=== PATIENT | female | born 1965 | race Caucasian/White ===

== ENCOUNTER 2018-12-12 10:36 | Emergency (ER) | payer BC ==
[2018-12-12] MEDS ORDERED: HYDROCODONE/APAP 5/325 MG TAB ONE ×2 (11:30→12:41)
[2018-12-12] MEDS ORDERED: IBUPROFEN 400 MG TAB ONE (11:30)
--- NOTE | 2018-12-12 12:03 | RAD REPORT ---
EXAM DESCRIPTION: RAD - Lumbar Spine 3 Views - 12/12/2018 11:48 am CLINICAL HISTORY: Fall, back pain, right lower extremity radiculopathy COMPARISON: None. FINDINGS: A three-view lumbar spine examination was performed. Lumbar bodies are normal in height an d alignment. No lumbar fracture or acute finding. No lytic or sclerotic changes. T11-12 disc space na rrowing present with endplate degenerative change. Degenerative endplate spurring is seen throughout the lumbar spine most prominent at the L2-3 disc level. Facet joint degenerative changes are present in the mid and lower lumbar spine. No significant SI joint finding. No pars defects identified. IMPRESSION: No compression fracture or acute lumbar spine finding. Patient has advanced for age degenerative change in the lower lumbar facet joints and in the lower th oracic and in the upper lumbar spine.
--- NOTE | 2018-12-12 12:03 | RAD REPORT ---
EXAM DESCRIPTION: RAD - Hip Right 2 View - 12/12/2018 11:48 am CLINICAL HISTORY: Fall, right hip pain COMPARISON: None. FINDINGS: AP and frog-leg views of the right hip were obtained. There is no fracture or dislocation . No AVN or focal femoral head abnormality. Patient has mild degenerative spurring along the superio r acetabular rim and along the articular margins of the femoral head. No periarticular mass or hemato ma. IMPRESSION: Right hip degenerative changes are present without fracture or acute finding.
--- NOTE | 2018-12-12 12:24 | ER ---
Nurse's Notes [facility] Name: Nasrin Valencia Age: 53 yrs Sex: Female : 1965 Arrival Date: 12/12/2018 Time: 10:41 Bed 8 Private MD: None, None Diagnosis: Low back pain;Muscle spasm of back;Contusion of right hip Presentation: 12/12 10:45 Presenting complaint: Patient states: "I was walking to the living room and as soon as aa5 I turned close to the ottoman I fell right on my butt". pt c/o lower back pain, pain to right gluteus radiating down right leg. Pt denies head injury. Pt reports fall occurred last night. 10:45 Care prior to arrival: None. Mechanism of Injury: Fall from standing position. Trauma aa5 event details: Injury occurred in the [facility], Injury occurred: at home. Injury occurred: November 2018. 10:45 Acuity: LUISA 4 aa5 10:45 Method Of Arrival: Ambulatory aa5 12:35 Transition of care: patient was not received from another setting of care. Onset of bp symptoms was December 11, 2018. Risk Assessment: Do you want to hurt yourself or someone else? Patient reports no desire to harm self or others. Initial Sepsis Screen: Does the patient meet any 2 criteria? No. Patient's initial sepsis screen is negative. Does the patient have a suspected source of infection? No. Patient's initial sepsis screen is negative. 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 - Social history:: Smoking status: Patient uses tobacco products, smokes one pack cigarettes per day. - Ebola Screening: : No symptoms or risks identified at this time. Screenin:32 Abuse screen: Denies threats or abuse. Denies injuries from another. Nutritional bp screening: No deficits noted. Tuberculosis screening: No symptoms or risk factors identified. Fall Risk None identified. Assessment: 10:45 General: Appears in no apparent distress. uncomfortable, Behavior is cooperative, bp appropriate for age, anxious. Pain: Complains of pain in buttocks. Neuro: Level of Consciousness is awake, alert, obeys commands, Oriented to person, place, time, situation, Appropriate for age Gait is steady. Cardiovascular: No deficits noted. Respiratory: Airway is patent Respiratory effort is even, unlabored, Respiratory pattern is regular, symmetrical. GI: No signs and/or symptoms were reported involving the gastrointestinal system. : No signs and/or symptoms were reported regarding the genitourinary system. EENT: No deficits noted. Derm: No deficits noted. Musculoskeletal: Circulation, motion, and sensation intact. Range of motion: intact in all extremities. 11:30 Reassessment: PT RETURNED FROM XRAY, RESULTS PENDING. bp 12:34 Reassessment: PT D/C HOME AMBULATORY WITH FAMILY, DX WITH LOW BACK PAIN. bp Vital Signs: 10:47 Weight 77.11 kg (R); Height 5 ft. 5 in. (165.10 cm) (R); Pain 10/10; aa5 11:36 BP 101 / 68; Pulse 75; Resp 14; Temp 98; Pulse Ox 100% ; bp 10:47 Body Mass Index 28.29 (77.11 kg, 165.10 cm) aa5 ED Course: 10:41 Patient arrived in ED. mr 10:42 None, None is Private Physician. mr 10:45 Finesse Moore NP is PHCP. pm1 10:45 Sidney Pereira MD is Attending Physician. pm1 10:45 Arm band placed on Patient placed in an exam room, on a stretcher. aa5 10:53 Triage completed. aa5 11:15 Faraz Cantu, PADMA is Primary Nurse. la1 11:16 X-ray completed. Patient tolerated procedure well. la2 11:32 Patient has correct armband on for positive identification. Bed in low position. Call bp light in reach. Side rails up X2. Adult w/ patient. 12:34 No provider procedures requiring assistance completed. Patient did not have IV access bp during this emergency room visit. Administered Medications: 11:15 Drug: Opp 5 mg-325 mg 1 tabs Route: PO; bp 12:26 Follow up: Response: Pain is decreased bp 11:15 Drug: Ibuprofen 600 mg Route: PO; bp 12:26 Follow up: Response: Pain is decreased bp 12:34 Drug: Opp 5 mg-325 mg 1 tabs Route: PO; bp 12:36 Follow up: Response: Medication administered at discharge. bp Outcome: 12:24 Discharge ordered by MD. pm1 12:35 Discharged to home ambulatory, with family. bp 12:35 Condition: stable 12:35 Discharge instructions given to patient, Instructed on discharge instructions, follow up and referral plans. medication usage, Demonstrated understanding of instructions, follow-up care, medications, Prescriptions given X 2. 12:37 Patient left the ED. bp Signatures: Annabel Richardson mr CallejasSusan RN RN aa5 Faraz Cantu RN RN la1 Finesse Moore, CRITICAL SYSTEMS TECHNICIAN CRITICAL SYSTEMS TECHNICIAN pm1 Nadia Baltazar la2 Frank Holguin RN RN bp
--- NOTE | 2018-12-12 12:25 | EDPHYS ---
Physician Documentation [facility] Name: Nasrin Valencia Age: 53 yrs Sex: Female : 1965 Arrival Date: 12/12/2018 Time: 10:41 Bed 8 Private MD: None, None ED Physician Sidney Pereira HPI: 12/12 11:00 This 53 yrs old Female presents to ER via Ambulatory with complaints of Fall pm1 Injury. 11:00 Details of fall: The patient fell from an upright position, while walking. Onset: The pm1 symptoms/episode began/occurred last night. Associated injuries: The patient sustained injury to the low back, right hip, Pain. Severity of symptoms: in the emergency department the symptoms are actually worse. The patient has not experienced similar symptoms in the past. The patient has not recently seen a physician. Patient fell last night in her living room. Landed on her buttocks and presenting with pain to lower back, right hip, and right buttocks. no headache, head injury, neck pain or LOC. 11:00 Patient has been walking after fall injury. 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 - Social history:: Smoking status: Patient uses tobacco products, smokes one pack cigarettes per day. - Ebola Screening: : No symptoms or risks identified at this time. ROS: 11:00 Constitutional: Negative for fever, chills, and weight loss, Eyes: Negative for injury, pm1 pain, redness, and discharge, ENT: Negative for injury, pain, and discharge, Neck: Negative for injury, pain, and swelling, Cardiovascular: Negative for chest pain, palpitations, and edema, Respiratory: Negative for shortness of breath, cough, wheezing, and pleuritic chest pain, Abdomen/GI: Negative for abdominal pain, nausea, vomiting, diarrhea, and constipation. 11:00 : Negative for injury, bleeding, discharge, and swelling. 11:00 Skin: Negative for injury, rash, and discoloration. 11:00 Neuro: Negative for headache, weakness, numbness, tingling, and seizure. 11:00 Back: Positive for of the low back area, Negative for decreased range of motion. 11:00 MS/extremity: Positive for pain, of the right hip and right gluteus becka, Negative for decreased range of motion, deformity. Exam: 11:00 Constitutional: This is a well developed, well nourished patient who is awake, alert, pm1 and in no acute distress. Head/Face: Normocephalic, atraumatic. Eyes: Pupils equal round and reactive to light, extra-ocular motions intact. Lids and lashes normal. Conjunctiva and sclera are non-icteric and not injected. Cornea within normal limits. Periorbital areas with no swelling, redness, or edema. ENT: Nares patent. No nasal discharge, no septal abnormalities noted. Tympanic membranes are normal and external auditory canals are clear. Oropharynx with no redness, swelling, or masses, exudates, or evidence of obstruction, uvula midline. Mucous membranes moist. Neck: Trachea midline, no thyromegaly or masses palpated, and no cervical lymphadenopathy. Supple, full range of motion without nuchal rigidity, or vertebral point tenderness. No Meningismus. Chest/axilla: Normal chest wall appearance and motion. Nontender with no deformity. No lesions are appreciated. Cardiovascular: Regular rate and rhythm with a normal S1 and S2. No gallops, murmurs, or rubs. Normal PMI, no JVD. No pulse deficits. Respiratory: Lungs have equal breath sounds bilaterally, clear to auscultation and percussion. No rales, rhonchi or wheezes noted. No increased work of breathing, no retractions or nasal flaring. Abdomen/GI: Soft, non-tender, with normal bowel sounds. No distension or tympany. No guarding or rebound. No evidence of tenderness throughout. 11:00 Skin: Warm, dry with normal turgor. Normal color with no rashes, no lesions, and no evidence of cellulitis. 11:00 Back: normal spinal alignment noted, vertebral tenderness, is appreciated at lumbar spine, muscle spasm, is appreciated in the right low back. 11:00 Musculoskeletal/extremity: Extremities: grossly normal except: noted in the right hip and right gluteus becka: tenderness, There is no evidence of decreased ROM, deformity. 11:00 Neuro: Orientation: is normal, Motor: is normal, moves all fours, strength is normal, strength is 5/5 in all extremities, Sensation: is normal, no obvious gross deficits. Vital Signs: 10:47 Weight 77.11 kg (R); Height 5 ft. 5 in. (165.10 cm) (R); Pain 10/10; aa5 11:36 BP 101 / 68; Pulse 75; Resp 14; Temp 98; Pulse Ox 100% ; bp 10:47 Body Mass Index 28.29 (77.11 kg, 165.10 cm) aa5 MDM: 10:47 Patient medically screened. pm1 11:57 Data reviewed: vital signs. Data interpreted: Pulse oximetry: on room air is 100 %. pm1 Interpretation: normal. 12:23 Counseling: I had a detailed discussion with the patient and/or guardian regarding: the pm1 historical points, exam findings, and any diagnostic results supporting the discharge/admit diagnosis, radiology results, the need for outpatient follow up, to return to the emergency department if symptoms worsen or persist or if there are any questions or concerns that arise at home. 12/12 10:56 Order name: Lumbar Spine (3 Views) XRAY pm1 12/12 10:56 Order name: Hip Right 2 View XRAY pm1 12/12 12:03 Order name: RAD; Complete Time: 12:23 EDMS 12/12 12:04 Order name: RAD; Complete Time: 12:23 EDMS Administered Medications: 11:15 Drug: [place] 5 mg-325 mg 1 tabs Route: PO; bp 12:26 Follow up: Response: Pain is decreased bp 11:15 Drug: Ibuprofen 600 mg Route: PO; bp 12:26 Follow up: Response: Pain is decreased bp 12:34 Drug: [place] 5 mg-325 mg 1 tabs Route: PO; bp 12:36 Follow up: Response: Medication administered at discharge. bp Disposition: 12/12/18 12:24 Discharged to Home. Impression: Low back pain, Muscle spasm of back, Contusion of right hip. - Condition is Stable. - Discharge Instructions: Back Pain, Adult, Contusion, Muscle Cramps and Spasms, Back Injury Prevention, [id number]. - Prescriptions for Tylenol- Codeine #3 300-30 mg Oral Tablet - take 2 tablets by ORAL route every 6 hours As needed; 20 tablet. Cyclobenzaprine 10 mg Oral Tablet - take 1 tablet by ORAL route every 8 hours As needed; 30 tablet. - Medication Reconciliation Form, Thank You Letter, Prescription Opioid Use form. - Follow up: Emergency Department; When: As needed; Reason: Worsening of condition. Follow up: Private Physician; When: 2 - 3 days; Reason: Recheck today's complaints, Continuance of care, Re-evaluation by your physician. - Problem is new. - Symptoms have improved. Addendum: 12/14/2018 03:33 Co-signature as Attending Physician, Sidney Pereira MD I agree with the assessment and t w4 plan of care. Signatures: Dispatcher [employer] EDMS Susan Callejas, RN RN aa5 Finesse Moore, GRACIE FORMULA BOTTLER pm1 Frank Holguin RN RN bp Sidney Pereira MD MD tw4 Corrections: (The following items were deleted from the chart) 12/12 12:37 12:24 12/12/2018 12:24 Discharged to Home. Impression: Low back pain; Muscle spasm of bp back; Contusion of right hip. Condition is Stable. Forms are Medication Reconciliation Form, Thank You Letter, Antibiotic Education, Prescription Opioid Use. Follow up: Emergency Department; When: As needed; Reason: Worsening of condition. Follow up: Private Physician; When: 2 - 3 days; Reason: Recheck today's complaints, Continuance of care, Re-evaluation by your physician. Problem is new. Symptoms have improved. pm1
== END 2018-12-12 12:37 | disposition home or self-care (01) ==
LOC: ER 10:36
DX: M62.830 Muscle spasm of back (principal); S70.01XA Contusion of right hip, initial encounter; W18.39XA Other fall on same level, initial encounter; Y93.01 Activity, walking, marching and hiking; Y92.008 Other place in unspecified non-institutional (private) residence as the place of occurrence of the external cause; F17.210 Nicotine dependence, cigarettes, uncomplicated
CPT/HCPCS: 72100